=== PATIENT | male | born 1965 | race Caucasian/White ===

== ENCOUNTER 2018-11-04 16:47 | Inpatient (IN) | payer OTHER ==
--- NOTE | 2018-11-04 18:24 | PN ---
Urine Drug Screen - Test Device Lot number: [id number] Expiration date: 08/09/20 - Control Is test valid?: Yes - Results Drug screen NEGATIVE: Yes
[2018-11-04 19:27] VITALS: BMI 27.4
--- NOTE | 2018-11-04 20:03 | HP ---
CIWA Score Nausea/Vomitin Muscle Tremors: 2 Anxiety: 2 Agitation: 3 Paroxysmal Sweats: 1-Minimal Palms Moist Orientation: 0-Oriented Tacttile Disturbances: 0-None Auditory Disturbances: 1-Very Mild Visual Disturbances: 1-Very Mild Sensitivity Headache: 2-Mild CIWA-Ar Total Score: 15 - Admission Criteria OASAS Guidelines: Admission for Medically Managed Detox: Requires at least one of the followin. CIWA greater than 12 2. Seizures within the past 24 hours 3. Delirium tremens within the past 24 hours 4. Hallucinations within the past 24 hours 5. Acute intervention needed for co occurring medical disorder 6. Acute intervention needed for co occurring psychiatric disorder 7. Severe withdrawal that cannot be handled at a lower level of care (continued vomiting, continued diarrhea, abnormal vital signs) requiring intravenous medication and/or fluids 8. Patient presents the following: CIWA greater than 12 Admission Criteria Met: Admission criteria met Admission ROS [facility] Chief Complaint: THEY SENT ME Allergies/Adverse Reactions: Allergies Allergy/AdvReac Type Severity Reaction Status Date / Time No Known Allergies Allergy Verified 11/04/18 19:20 History of Present Illness: DRINKS BEER, 6-7 MINIMUM DAILY 2 YEARS OF HEAVY DRINKING BEGAN DRINKING A TEEN - Ebola screening Have you traveled outside of the country in the last 21 days: No (N) Have you had contact with anyone from an Ebola affected area: No Do you have a fever: No - Review of Systems Constitutional: Changes in sleep EENT: reports: No Symptoms Reported Respiratory: reports: No Symptoms reported Cardiac: reports: No Symptoms Reported GI: reports: Nausea, Abdominal cramping : reports: No Symptoms Reported Musculoskeletal: reports: No Symptoms Reported Integumentary: reports: No Symptoms Reported Neuro: reports: No Symptoms reported Endocrine: reports: No Symptoms Reported Hematology: reports: No Symptoms Reported Psychiatric: reports: Anxious, Depressed Patient History - Patient Medical History Hx Anemia: No Hx Asthma: No Hx Chronic Obstructive Pulmonary Disease (COPD): No Hx Cancer: No Hx Cardiac Disorders: No Hx Congestive Heart Failure: No Hx Hypertension: No Hx Hypercholesterolemia: No Hx Pacemaker: No HX Cerebrovascular Accident: No Hx Seizures: No Hx Dementia: No Hx Diabetes: No Hx Gastrointestinal Disorders: No Hx Liver Disease: No Hx Genitourinary Disorders: No Hx Sexually Transmitted Disorders: No Hx Renal Disease (ESRD): No Hx Thyroid Disease: No Hx Human Immunodeficiency Virus (HIV): No Hx Hepatitis C: No Hx Depression: No Hx Suicide Attempt: No Hx Bipolar Disorder: No Hx Schizophrenia: No - Patient Surgical History Past Surgical History: Yes Hx Orthopedic Surgery: Yes (FOOT SURGERY) - PPD History Previous Implant?: Yes Documented Results: Negative w/o proof - Smoking Cessation Smoking history: Former smoker Have you smoked in the past 12 months: No Initiated information on smoking cessation: No 'Breaking Loose' booklet given: 11/04/18 - Substances abused Alcohol Substance route: Oral Frequency: Daily Amount used: 05/05OZ BEER Age of first use: 10 Date of last use: 11/04/18 Family Disease History - Family Disease History Family History: Denies Admission Physical Exam S - Vital Signs Vital Signs: Vital Signs - 24 hr 11/04/18 19:20 Temperature 98.2 F Pulse Rate 99 H Respiratory 18 Rate Blood Pressure 130/76 - Physical General Appearance: Yes: Alcohol on Breath, Anxious HEENTM: Yes: EOMI Respiratory: Yes: Lungs Clear, Normal Breath Sounds Neck: Yes: No masses,lesions,Nodules Breast: Yes: Breast Exam Deferred Cardiology: Yes: Regular Rhythm, Regular Rate, S1, S2 Abdominal: Yes: Normal Bowel Sounds, Non Tender Genitourinary: Yes: Within Normal Limits Back: Yes: Normal Inspection, CVA Tenderness Musculoskeletal: Yes: Within Normal Limits Extremities: Yes: Normal Capillary Refill, Normal Inspection, Normal Range of Motion, Non-Tender Neurological: Yes: Within Normal Limits, 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
[2018-11-04] MEDS ORDERED: hydrOXYzine PAMOATE 25 MG CAPSULE (FP) PO PRN (20:17)
[2018-11-04] MEDS ORDERED: ACETAMINOPHEN 325 MG TABLET (FP) PO PRN ×2 (20:17)
[2018-11-04] MEDS ORDERED: BISMUTH SUBSALICYLATE 524 MG/30 ML UD PO PRN (20:17)
[2018-11-04] MEDS ORDERED: IBUPROFEN 400 MG TABLET (FP) PO PRN (20:17)
[2018-11-04] MEDS ORDERED: MAGNESIUM CITRATE 300 ML BOTTLE PO PRN (20:17)
[2018-11-04] MEDS ORDERED: MAGNESIUM HYDROX 2400MG/30ML ORAL SUSPENSION 30 ML CUP PO PRN (20:17)
[2018-11-04] MEDS ORDERED: MAG HYDROX/AL HYDROX/SIMETH 30 ML UNIT-DOSE CUP PO PRN (20:17)
[2018-11-04] MEDS ORDERED: MENTHOL/PHENOL 1 EACH UD MM PRN (20:17)
[2018-11-04] MEDS ORDERED: METHOCARBAMOL 500 MG TABLET PO PRN (20:17)
--- NOTE | 2018-11-04 21:04 | PN ---
[facility] Progress Note Note: EKG shows NSR w/ septal infarct, age undetermined. Denies cardiac hx. Denies CP/SOB, irregular heart beat. Will repeat EKG on 11/06.
[2018-11-04] MEDS: chlordiazePOXIDE HCL 25 MG CAPSULE PO SCH (21:49)
[2018-11-04] MEDS: THIAMINE HCL 100 MG TABLET (FP) PO SCH (21:49)
[2018-11-05] MEDS: chlordiazePOXIDE HCL 25 MG CAPSULE PO SCH ×3 (06:00→22:16)
[2018-11-05] MEDS: PRENATAL VITAMINS W/ FOLIC ACID TABLET (FP) PO SCH (10:13)
[2018-11-05] MEDS: chlordiazePOXIDE HCL 10 MG CAPSULE PO PRN (10:13)
[2018-11-05 12:01] LABS: HEMATOCRIT 37.9 % (35.4-49); MCH 33.1 pg (25.7-33.7); MCHC 34.2 g/dl (32.0-35.9); MEAN CELL VOLUME 96.9 fl (80-96); MEAN PLT VOLUME 9.1 fl (7.5-11.1); PLATELET COUNT 183 K/MM3 (134-434); RBC 3.91 M/mm3 (4.00-5.60); RDW 13.1 % (11.9-15.9); WHITE BLOOD COUNT 7.1 K/mm3 (4.0-10.0)
[2018-11-05 12:28] LABS: ALBUMIN 3.5 g/dl (3.4-5.0); BILIRUBIN,TOTAL 0.6 mg/dL (0.2-1); BLOOD UREA NITROGEN 11.2 mg/dL (7-18); CALCIUM 9.3 mg/dL (8.5-10.1); CREATININE 0.8 mg/dL (0.55-1.3); POTASSIUM 4.2 mmol/L (3.5-5.1); TOT PROT 6.7 g/dl (6.4-8.2)
--- NOTE | 2018-11-05 14:00 | PN ---
S CIWA - CIWA Score Nausea/Vomitin Muscle Tremors: 2 Anxiety: 2 Agitation: 2 Paroxysmal Sweats: 1-Minimal Palms Moist Orientation: 0-Oriented Tacttile Disturbances: 1-Very Mild Itch/Numbness Auditory Disturbances: 0-None Visual Disturbances: 0-None Headache: 2-Mild CIWA-Ar Total Score: 12 [facility] Progress Note (SOAP) Subjective: alert,irritable,anxious,interrupted sleep,tremor Objective: 11/05/18 13:58 Vital Signs Temperature 98.7 F 11/05/18 13:14 Pulse Rate 58 L 11/05/18 13:14 Respiratory Rate 18 11/05/18 13:14 Blood Pressure 129/85 11/05/18 13:14 O2 Sat by Pulse Oximetry (%) 11/05/18 13:59 Laboratory Last Values WBC 7.1 K/mm3 (4.0-10.0) 11/05/18 07:30 RBC 3.91 M/mm3 (4.00-5.60) L 11/05/18 07:30 Hgb 13.0 GM/dL (11.7-16.9) 11/05/18 07:30 Hct 37.9 % (35.4-49) 11/05/18 07:30 MCV 96.9 fl (80-96) H 11/05/18 07:30 MCH 33.1 pg (25.7-33.7) 11/05/18 07:30 MCHC 34.2 g/dl (32.0-35.9) 11/05/18 07:30 RDW 13.1 % (11.9-15.9) 11/05/18 07:30 Plt Count 183 K/MM3 (134-434) 11/05/18 07:30 MPV 9.1 fl (7.5-11.1) 11/05/18 07:30 Sodium 142 mmol/L (136-145) 11/05/18 07:30 Potassium 4.2 mmol/L (3.5-5.1) 11/05/18 07:30 Chloride 104 mmol/L (98-107) 11/05/18 07:30 Carbon Dioxide 29 mmol/L (21-32) 11/05/18 07:30 Anion Gap 9 MMOL/L (8-16) 11/05/18 07:30 BUN 11.2 mg/dL (7-18) 11/05/18 07:30 Creatinine 0.8 mg/dL (0.55-1.3) 11/05/18 07:30 Est GFR (CKD-EPI)AfAm 116.56 11/05/18 07:30 Est GFR (CKD-EPI)NonAf 100.57 11/05/18 07:30 Random Glucose 89 mg/dL (74-106) 11/05/18 07:30 Calcium 9.3 mg/dL (8.5-10.1) 11/05/18 07:30 Total Bilirubin 0.6 mg/dL (0.2-1) 11/05/18 07:30 AST 57 U/L (15-37) H 11/05/18 07:30 ALT 34 U/L (13-61) 11/05/18 07:30 Alkaline Phosphatase 68 U/L (45-117) 11/05/18 07:30 Total Protein 6.7 g/dl (6.4-8.2) 11/05/18 07:30 Albumin 3.5 g/dl (3.4-5.0) 11/05/18 07:30 RPR Titer Nonreactive (NONREACTIVE) 11/05/18 07:30 Assessment: 11/05/18 13:58 withdrawal symptom Plan: continue detox librium regimen
[2018-11-05] MEDS: THIAMINE HCL 100 MG TABLET (FP) PO SCH (22:16)
[2018-11-06] MEDS: chlordiazePOXIDE 5 MG CAPSULE PO SCH ×3 (05:22→21:26)
--- NOTE | 2018-11-06 07:04 | EKG ---
Test Reason : Blood Pressure : / mmHG Vent. Rate : 065 BPM Atrial Rate : 065 BPM P-R Int : 180 ms QRS Dur : 080 ms QT Int : 416 ms P-R-T Axes : 065 036 056 degrees QTc Int : 432 ms SINUS RHYTHM WITH MARKED SINUS ARRHYTHMIA LOW VOLTAGE QRS BORDERLINE ECG NO PREVIOUS ECGS AVAILABLE Confirmed by Quentin Martinez ([id number]) on 11/05/2018 3:14:55 PM Referred By: Confirmed By:Quentin Martinez
[2018-11-06] MEDS: PRENATAL VITAMINS W/ FOLIC ACID TABLET (FP) PO SCH (10:09)
[2018-11-06] MEDS: chlordiazePOXIDE HCL 10 MG CAPSULE PO PRN (10:10)
--- NOTE | 2018-11-06 12:14 | EKG ---
Test Reason : Blood Pressure : / mmHG Vent. Rate : 076 BPM Atrial Rate : 076 BPM P-R Int : 186 ms QRS Dur : 090 ms QT Int : 394 ms P-R-T Axes : 071 058 064 degrees QTc Int : 443 ms NORMAL SINUS RHYTHM SEPTAL INFARCT , AGE UNDETERMINED ABNORMAL ECG NO PREVIOUS ECGS AVAILABLE Confirmed by TERE LOPEZ MD ([id number]) on 11/06/2018 12:14:16 PM Referred By: EIAM Confirmed By:TERE LOPEZ MD
--- NOTE | 2018-11-06 13:01 | PN ---
[facility] CIWA - CIWA Score Nausea/Vomitin-Mild Nausea/No Vomiting Muscle Tremors: 1-None Visible, but [place] Anxiety: 2 Agitation: 3 Paroxysmal Sweats: No Perspiration Orientation: 0-Oriented Tacttile Disturbances: 0-None Auditory Disturbances: 0-None Visual Disturbances: 0-None Headache: 2-Mild CIWA-Ar Total Score: 9 S Progress Note (SOAP) Subjective: alert,irritable,anxious,interrupted sleep,pain in the body Objective: 11/06/18 13:00 Vital Signs Temperature 98 F 11/06/18 09:04 Pulse Rate 60 11/06/18 09:04 Respiratory Rate 20 11/06/18 09:04 Blood Pressure 106/71 11/06/18 09:04 O2 Sat by Pulse Oximetry (%) Assessment: 11/06/18 13:01 withdrawal symptom Plan: continue detox librium regimen
[2018-11-06] MEDS: THIAMINE HCL 100 MG TABLET (FP) PO SCH (21:26)
[2018-11-06] MEDS: MELATONIN 5 MG TABLETS PO PRN (21:26)
[2018-11-07] MEDS ORDERED: chlordiazePOXIDE HCL 10 MG CAPSULE PO PRN
[2018-11-07] MEDS: chlordiazePOXIDE HCL 10 MG CAPSULE PO SCH ×3 (05:10→22:14)
[2018-11-07] MEDS: PRENATAL VITAMINS W/ FOLIC ACID TABLET (FP) PO SCH (10:04)
--- NOTE | 2018-11-07 13:08 | PN ---
[facility] CIWA - CIWA Score Nausea/Vomitin-No Nausea/No Vomiting Muscle Tremors: 2 Anxiety: 1-Mildly Anxious Agitation: 2 Paroxysmal Sweats: 1-Minimal Palms Moist Orientation: 0-Oriented Tacttile Disturbances: 0-None Auditory Disturbances: 0-None Visual Disturbances: 0-None Headache: 0-None Present CIWA-Ar Total Score: 6 S Progress Note (SOAP) Subjective: doing well with libirum detox regimen less tremor sleep better at night discuss aftercare [facility] Objective: 11/07/18 13:09 Vital Signs Temperature 98.1 F 11/07/18 09:04 Pulse Rate 67 11/07/18 09:04 Respiratory Rate 18 11/07/18 09:04 Blood Pressure 126/77 11/07/18 09:04 O2 Sat by Pulse Oximetry (%) Laboratory Last Values WBC 7.1 K/mm3 (4.0-10.0) 11/05/18 07:30 RBC 3.91 M/mm3 (4.00-5.60) L 11/05/18 07:30 Hgb 13.0 GM/dL (11.7-16.9) 11/05/18 07:30 Hct 37.9 % (35.4-49) 11/05/18 07:30 MCV 96.9 fl (80-96) H 11/05/18 07:30 MCH 33.1 pg (25.7-33.7) 11/05/18 07:30 MCHC 34.2 g/dl (32.0-35.9) 11/05/18 07:30 RDW 13.1 % (11.9-15.9) 11/05/18 07:30 Plt Count 183 K/MM3 (134-434) 11/05/18 07:30 MPV 9.1 fl (7.5-11.1) 11/05/18 07:30 Sodium 142 mmol/L (136-145) 11/05/18 07:30 Potassium 4.2 mmol/L (3.5-5.1) 11/05/18 07:30 Chloride 104 mmol/L (98-107) 11/05/18 07:30 Carbon Dioxide 29 mmol/L (21-32) 11/05/18 07:30 Anion Gap 9 MMOL/L (8-16) 11/05/18 07:30 BUN 11.2 mg/dL (7-18) 11/05/18 07:30 Creatinine 0.8 mg/dL (0.55-1.3) 11/05/18 07:30 Est GFR (CKD-EPI)AfAm 116.56 11/05/18 07:30 Est GFR (CKD-EPI)NonAf 100.57 11/05/18 07:30 Random Glucose 89 mg/dL (74-106) 11/05/18 07:30 Calcium 9.3 mg/dL (8.5-10.1) 11/05/18 07:30 Total Bilirubin 0.6 mg/dL (0.2-1) 11/05/18 07:30 AST 57 U/L (15-37) H 11/05/18 07:30 ALT 34 U/L (13-61) 11/05/18 07:30 Alkaline Phosphatase 68 U/L (45-117) 11/05/18 07:30 Total Protein 6.7 g/dl (6.4-8.2) 11/05/18 07:30 Albumin 3.5 g/dl (3.4-5.0) 11/05/18 07:30 RPR Titer Nonreactive (NONREACTIVE) 11/05/18 07:30 lab noted Assessment: 11/07/18 13:09 alcohol withdrawal sx 11/07/18 13:10 alert oriented x 3 c/o roommate snores but able to fall asleep Plan: continue librium detox regimen
[2018-11-07] MEDS: THIAMINE HCL 100 MG TABLET (FP) PO SCH (22:14)
[2018-11-07] MEDS: MELATONIN 5 MG TABLETS PO PRN (22:14)
[2018-11-08] MEDS ORDERED: chlordiazePOXIDE HCL 10 MG CAPSULE PO ONE (05:00)
--- NOTE | 2018-11-08 09:23 | PN ---
[facility] CIWA - CIWA Score Nausea/Vomitin-No Nausea/No Vomiting Muscle Tremors: None Anxiety: 0-No Anxiety, at Ease Agitation: 1-Slight > Activity Paroxysmal Sweats: No Perspiration Orientation: 0-Oriented Tacttile Disturbances: 0-None Auditory Disturbances: 0-None Visual Disturbances: 0-None Headache: 1-Very Mild CIWA-Ar Total Score: 2 [facility] Progress Note (SOAP) Subjective: alert,.no complaint Objective: 11/08/18 09:22 Vital Signs Temperature 98.1 F 11/08/18 06:40 Pulse Rate 52 L 11/08/18 06:40 Respiratory Rate 18 11/08/18 06:40 Blood Pressure 120/80 11/08/18 06:40 O2 Sat by Pulse Oximetry (%) Assessment: 11/08/18 09:22 detox completed,no withdrawal symptom Plan: discharge today,follow up with [facility] as arrangement
--- NOTE | 2018-11-08 09:24 | DS ---
[facility] Detox Discharge Summary Admission Date: 11/04/18 Discharge Date: 11/08/18 - History Present History: Alcohol Dependence Additional Comments: follow up with [facility] as arrangement - Physical Exam Results Vital Signs: Vital Signs Temperature 98.1 F 11/08/18 06:40 Pulse Rate 52 L 11/08/18 06:40 Respiratory Rate 18 11/08/18 06:40 Blood Pressure 120/80 11/08/18 06:40 O2 Sat by Pulse Oximetry (%) Pertinent Admission Physical Exam Findings: withdrawal signs and symptom - Treatment Hospital Course: Detox Protocol Followed, Detoxed Safely, Responded well, Discharged Condition Good, Rehab Referral Accepted Patient has Accepted a Rehab Referral to: [facility] - Medication Discharge Medications: Ambulatory Orders NK [No Known Home Medication] 11/04/18 - Diagnosis (1) Alcohol dependence with withdrawal, uncomplicated Current Visit: Yes Status: Acute - AMA Did Patient Leave Against Medical Advice: No
[2018-11-08 09:44] VITALS: BP 121/85; PULSE 73; TEMP 97.3
[2018-11-08] MEDS: PRENATAL VITAMINS W/ FOLIC ACID TABLET (FP) PO SCH (10:02)
== END 2018-11-08 12:22 | disposition other institution (70) | DRG 775 ==
LOC: YASAS 16:47 → Y3N 20:44
PROVIDERS: ADMIT Surgery; ATTEND Surgery
PROC: HZ2ZZZZ Detoxification Services for Substance Abuse Treatment (ICD-10-PCS; principal; 2018-11-04)
DX: F10.230 Alcohol dependence with withdrawal, uncomplicated (principal); Z87.891 Personal history of nicotine dependence
CPT/HCPCS: 36415; 80053; 85027; 86593; 93005; 93010

== ENCOUNTER 2018-11-08 12:34 | Inpatient (IN) | payer OTHER ==
[2018-11-08] MEDS ORDERED: MAGNESIUM CITRATE 300 ML BOTTLE PO PRN (14:55)
[2018-11-08] MEDS ORDERED: LOPERAMIDE HCL 2 MG CAPSULE PO PRN (14:55)
[2018-11-08] MEDS ORDERED: MENTHOL/PHENOL 1 EACH UD MM PRN (14:55)
[2018-11-08] MEDS ORDERED: guaiFENesin 200 MG/10 ML 10 ML UNIT-DOSE CUPS PO PRN (14:55)
[2018-11-08] MEDS ORDERED: MAGNESIUM HYDROX 2400MG/30ML ORAL SUSPENSION 30 ML CUP PO PRN (14:55)
[2018-11-08] MEDS ORDERED: ACETAMINOPHEN 325 MG TABLET (FP) PO PRN (14:55)
[2018-11-08] MEDS ORDERED: P-EPHED 60MG/TRIPROLIDI 2.5MG TABLET PO PRN (14:55)
[2018-11-08] MEDS ORDERED: IBUPROFEN 400 MG TABLET (FP) PO PRN (14:55)
--- NOTE | 2018-11-08 14:55 | HP ---
[facility] Rehab Assess/Revision - Admission History Admitted to Rehab from: [facility] Date of Admission to Rehab: 11/08/18 - Findings Detox History & Physical reviewed: Yes Concur with findings: Yes Comments/Additional Findings: for rehab as protocol Inpatient Rehab Admission - Rehab Decision to Admit Inpatient rehab admission?: Yes - Initial Determination Are CD services needed?: Yes Free of communicable disease: Yes Not in need of hospitalization: Yes - Rehab Admission Criteria Previous failed treatment: Yes Poor recovery environment: Yes Comorbidities: Yes Lacks judgement: No Patient is meeting Inpatient Rehab admission criteria:: Yes
[2018-11-08] MEDS: MELATONIN 5 MG TABLETS PO PRN (21:09)
[2018-11-08] MEDS: THIAMINE HCL 100 MG TABLET (FP) PO SCH (21:09)
[2018-11-09] MEDS: PRENATAL VITAMINS W/ FOLIC ACID TABLET (FP) PO SCH (09:44)
[2018-11-09] MEDS: MAG HYDROX/AL HYDROX/SIMETH 30 ML UNIT-DOSE CUP PO PRN (14:25)
[2018-11-09] MEDS: THIAMINE HCL 100 MG TABLET (FP) PO SCH (21:06)
[2018-11-09] MEDS: hydrOXYzine PAMOATE 25 MG CAPSULE (FP) PO PRN (21:07)
[2018-11-09] MEDS: MELATONIN 5 MG TABLETS PO PRN (21:07)
[2018-11-10] MEDS: MAG HYDROX/AL HYDROX/SIMETH 30 ML UNIT-DOSE CUP PO PRN ×3 (00:22→21:15)
[2018-11-10] MEDS: PRENATAL VITAMINS W/ FOLIC ACID TABLET (FP) PO SCH (10:04)
[2018-11-10] MEDS: THIAMINE HCL 100 MG TABLET (FP) PO SCH (21:13)
[2018-11-10] MEDS: MELATONIN 5 MG TABLETS PO PRN (21:13)
[2018-11-10] MEDS: hydrOXYzine PAMOATE 25 MG CAPSULE (FP) PO PRN (23:57)
[2018-11-11] MEDS: PRENATAL VITAMINS W/ FOLIC ACID TABLET (FP) PO SCH (09:48)
[2018-11-11] MEDS: MAG HYDROX/AL HYDROX/SIMETH 30 ML UNIT-DOSE CUP PO PRN ×2 (09:49→16:34)
[2018-11-11] MEDS: THIAMINE HCL 100 MG TABLET (FP) PO SCH (21:07)
[2018-11-11] MEDS: MELATONIN 5 MG TABLETS PO PRN (21:08)
[2018-11-12] MEDS: hydrOXYzine PAMOATE 25 MG CAPSULE (FP) PO PRN ×2 (02:08→09:51)
[2018-11-12] MEDS: PANTOPRAZOLE 40 MG TABLET (FP) PO SCH (09:51)
[2018-11-12] MEDS: PRENATAL VITAMINS W/ FOLIC ACID TABLET (FP) PO SCH (09:51)
--- NOTE | 2018-11-12 12:17 | CONSULT ---
[facility] Psychiatric Consult - Data Date of interview: 11/12/18 Admission source: 3N Identifying data: Mr Diaz is a 53 years old single male, unemployed receiving public assistance, homeless seeking detox treatment for alcohol Substance Abuse History: Reports history of alcohol use. Refer to addiction counselor's summary for further information Medical History: Significant for GERD, history of orthosurgery for fracture left foot surgery Psychiatric History: Denies history of previous psychiatric treatment. However, reports sleeping poorly Physical/Sexual Abuse/Trauma History: Denies history of emotional, physical or sexual abuse as well as DV relationship Additional Comment: Denies criminal history Mental Status Exam - Mental Status Exam Alert and Oriented to: Time, Place, Person Cognitive Function: Fair Patient Appearance: Well Groomed Mood: Anxious (mildly) Affect: Appropriate Patient Behavior: Cooperative Speech Pattern: Clear Voice Loudness: Normal Thought Process: Intact, Goal Oriented Thought Disorder: Not Present Hallucinations: Denies Suicidal Ideation: Denies Homicidal Ideation: Denies Insight/Judgement: Poor Sleep: Poorly Appetite: Good Muscle strength/Tone: Normal Gait/Station: Normal Psychiatric Findings - Problem List ([place] 1, 2,3) (1) Alcohol-induced anxiety disorder Current Visit: Yes Status: Acute (2) Alcohol-induced sleep disorder Current Visit: Yes Status: Acute (3) Alcohol dependence Current Visit: No Status: Acute - Initial Treatment Plan Initial Treatment Plan: 1) Start Belsomra 10 mg po HS prn for insomnia. 2) Continue inpatient rehabilitation
[2018-11-12] MEDS: THIAMINE HCL 100 MG TABLET (FP) PO SCH (21:35)
[2018-11-12] MEDS: SUVOREXANT 10 MG TABLET PO PRN (21:37)
[2018-11-13] MEDS: PANTOPRAZOLE 40 MG TABLET (FP) PO SCH (10:19)
[2018-11-13] MEDS: PRENATAL VITAMINS W/ FOLIC ACID TABLET (FP) PO SCH (10:19)
[2018-11-13] MEDS: THIAMINE HCL 100 MG TABLET (FP) PO SCH (21:08)
[2018-11-13] MEDS: SUVOREXANT 10 MG TABLET PO PRN (21:09)
[2018-11-14] MEDS: PRENATAL VITAMINS W/ FOLIC ACID TABLET (FP) PO SCH (09:44)
[2018-11-14] MEDS: PANTOPRAZOLE 40 MG TABLET (FP) PO SCH (09:44)
[2018-11-14] MEDS: THIAMINE HCL 100 MG TABLET (FP) PO SCH (21:06)
[2018-11-14] MEDS: MELATONIN 5 MG TABLETS PO PRN (21:07)
[2018-11-14] MEDS: SUVOREXANT 10 MG TABLET PO PRN (21:08)
[2018-11-15] MEDS: PANTOPRAZOLE 40 MG TABLET (FP) PO SCH (09:58)
[2018-11-15] MEDS: PRENATAL VITAMINS W/ FOLIC ACID TABLET (FP) PO SCH (09:58)
--- NOTE | 2018-11-15 10:29 | PN ---
S CIWA - CIWA Score Nausea/Vomitin-No Nausea/No Vomiting Muscle Tremors: 1-None Visible, but [place] Anxiety: 3 Agitation: 0-Normal Activity Paroxysmal Sweats: No Perspiration Orientation: 0-Oriented Tacttile Disturbances: 2-Mild Itch/Numbness/Burn Auditory Disturbances: 0-None Visual Disturbances: 0-None Headache: 1-Very Mild CIWA-Ar Total Score: 7 [facility] Progress Note (SOAP) Subjective: Patient seen for MAT for ETOH dependence. Patient states " I need help to stop drinking" ROS + mild headache, shakes, tingling to fingertips, anxiety Objective: 11/15/18 10:29 Vital Signs (72 hours) 11/13/18 11/13/18 11/13/18 00:30 03:30 06:36 Temperature 98.5 F Pulse Rate 60 Respiratory 20 18 18 Rate Blood Pressure 132/86 11/14/18 11/14/18 11/14/18 00:30 03:30 06:40 Temperature 98.1 F Pulse Rate 57 L Respiratory 20 20 18 Rate Blood Pressure 124/79 11/15/18 11/15/18 11/15/18 00:30 03:30 06:39 Temperature 97.7 F Pulse Rate 65 Respiratory 20 18 18 Rate Blood Pressure 110/76 PE alert and oriented x 3 skin warm and dry +perrla, eoms intact bl neck supple, no jvd ext mild tremors, no visible edema anxious, denies SI/HI ast 57, alt 34 urine tox on admission negative Assessment: 11/15/18 10:33 ETOH dependence Plan: Vivitrol policy, procedure, use, dose, side effects and interactions discussed with patient Patient willing to start naltrexone 50mg daily challenge x one week counselor to connect to outpatient program in [facility] if medication tolerated will administer Vivitrol prior to discharge next Sunday11/22/18
[2018-11-15] MEDS: NALTREXONE HCL 50 MG TABLET PO SCH (10:40)
[2018-11-15] MEDS: THIAMINE HCL 100 MG TABLET (FP) PO SCH (21:04)
[2018-11-15] MEDS: SUVOREXANT 10 MG TABLET PO PRN (21:05)
[2018-11-16] MEDS: PANTOPRAZOLE 40 MG TABLET (FP) PO SCH (09:50)
[2018-11-16] MEDS: PRENATAL VITAMINS W/ FOLIC ACID TABLET (FP) PO SCH (09:50)
[2018-11-16] MEDS: NALTREXONE HCL 50 MG TABLET PO SCH (09:50)
[2018-11-16] MEDS: SUVOREXANT 10 MG TABLET PO PRN (21:37)
[2018-11-16] MEDS: THIAMINE HCL 100 MG TABLET (FP) PO SCH (21:37)
[2018-11-17] MEDS: NALTREXONE HCL 50 MG TABLET PO SCH (09:06)
[2018-11-17] MEDS: PANTOPRAZOLE 40 MG TABLET (FP) PO SCH (09:06)
[2018-11-17] MEDS: PRENATAL VITAMINS W/ FOLIC ACID TABLET (FP) PO SCH (09:06)
[2018-11-17] MEDS: THIAMINE HCL 100 MG TABLET (FP) PO SCH (21:14)
[2018-11-17] MEDS: SUVOREXANT 10 MG TABLET PO PRN (21:15)
[2018-11-18] MEDS ORDERED: PT OWN MED DRAWER 7, Y5N ONE (08:45)
[2018-11-18] MEDS: NALTREXONE HCL 50 MG TABLET PO SCH (09:46)
[2018-11-18] MEDS: PANTOPRAZOLE 40 MG TABLET (FP) PO SCH (09:46)
[2018-11-18] MEDS: PRENATAL VITAMINS W/ FOLIC ACID TABLET (FP) PO SCH (09:46)
[2018-11-18] MEDS: SUVOREXANT 10 MG TABLET PO PRN (21:12)
[2018-11-18] MEDS: THIAMINE HCL 100 MG TABLET (FP) PO SCH (21:13)
[2018-11-19] MEDS ORDERED: PT OWN MED DRAWER 7, Y5N ONE (08:38)
[2018-11-19] MEDS: NALTREXONE HCL 50 MG TABLET PO SCH (10:02)
[2018-11-19] MEDS: PRENATAL VITAMINS W/ FOLIC ACID TABLET (FP) PO SCH (10:02)
[2018-11-19] MEDS: PANTOPRAZOLE 40 MG TABLET (FP) PO SCH (10:02)
[2018-11-19] MEDS: TOLNAFTATE 1% CREAM 15 GM TUBE TP SCH ×2 (11:06→21:09)
[2018-11-19] MEDS: THIAMINE HCL 100 MG TABLET (FP) PO SCH (21:08)
[2018-11-19] MEDS: SUVOREXANT 10 MG TABLET PO PRN (21:09)
[2018-11-20] MEDS: PANTOPRAZOLE 40 MG TABLET (FP) PO SCH (10:05)
[2018-11-20] MEDS: TOLNAFTATE 1% CREAM 15 GM TUBE TP SCH ×2 (10:05→21:43)
[2018-11-20] MEDS: PRENATAL VITAMINS W/ FOLIC ACID TABLET (FP) PO SCH (10:05)
[2018-11-20] MEDS: NALTREXONE HCL 50 MG TABLET PO SCH (10:05)
[2018-11-20] MEDS: THIAMINE HCL 100 MG TABLET (FP) PO SCH (21:43)
[2018-11-20] MEDS: SUVOREXANT 10 MG TABLET PO PRN (21:44)
[2018-11-21] MEDS: TOLNAFTATE 1% CREAM 15 GM TUBE TP SCH ×2 (10:03→21:10)
[2018-11-21] MEDS: NALTREXONE HCL 50 MG TABLET PO SCH (10:03)
[2018-11-21] MEDS: PANTOPRAZOLE 40 MG TABLET (FP) PO SCH (10:03)
[2018-11-21] MEDS: PRENATAL VITAMINS W/ FOLIC ACID TABLET (FP) PO SCH (10:03)
[2018-11-21] MEDS ORDERED: NALTREXONE MICROSPHERES (VIVITROL) 380 MG DISP.SYRIN IM ONE (10:27)
[2018-11-21] MEDS: THIAMINE HCL 100 MG TABLET (FP) PO SCH (21:10)
[2018-11-21] MEDS ORDERED: SUVOREXANT 10 MG TABLET PO PRN (22:00)
[2018-11-22 06:28] VITALS: BP 117/76; PULSE 59; TEMP 97.9
[2018-11-22] MEDS: PANTOPRAZOLE 40 MG TABLET (FP) PO SCH (09:31)
[2018-11-22] MEDS: PRENATAL VITAMINS W/ FOLIC ACID TABLET (FP) PO SCH (09:31)
[2018-11-22] MEDS ORDERED: NALTREXONE MICROSPHERES (VIVITROL) 380 MG DISP.SYRIN IM ONE (10:27)
== END 2018-11-22 09:45 | disposition home or self-care (01) | DRG 772 ==
LOC: YASAS 12:34 → Y3W 12:35
PROVIDERS: ADMIT Neuromusculoskeletal Medicine & OMM; ATTEND Neuromusculoskeletal Medicine & OMM
PROC: HZ42ZZZ Group Counseling for Substance Abuse Treatment, Cognitive-Behavioral (ICD-10-PCS; principal; 2018-11-08)
DX: F10.20 Alcohol dependence, uncomplicated (principal); F10.280 Alcohol dependence with alcohol-induced anxiety disorder; F10.282 Alcohol dependence with alcohol-induced sleep disorder; K21.9 Gastro-esophageal reflux disease without esophagitis; Z87.891 Personal history of nicotine dependence
CPT/HCPCS: J2315